=== PATIENT | female | born 1990 | race Caucasian/White ===

== ENCOUNTER 2016-10-30 15:36 | Emergency (ER) | payer OTHER, SELFPAY ==
[2016-10-30] MEDS ORDERED: Ibuprofen 800 MG TAB ONE (15:58)
--- NOTE | 2016-10-30 16:24 | RAD ---
RADIOGRAPH CHEST 2 VIEW: HISTORY: 26-year-old female with acute chest pain. FINDINGS: There are no air space densities, pulmonary edema, pneumothorax, or cardiomegaly. Normal mediastinu m and kash. No pleural effusion. IMPRESSION: Negative. POS: [facility]
--- NOTE | 2016-10-30 16:45 | PICIS ---
[facility] EMERGENCY RECORD TRIAGE (ThuOct 30, 2016 15:47 CJEF) TRIAGE NOTES: CP. (ThuOct 30, 2016 15:47 CJEF) PATIENT: NAME: Kya Beavers, AGE: 26, GENDER: female, : Thu1990, TIME OF GREET: ThuOct 30, 2016 15:36, PREFERRED LANGUAGE: Lao, ETHNICITY: Not or , FALL RISK: NO, ECODE BILLING MAP: [facility], SSN: [id number], Zip Code: [address], KG WEIGHT: 72.57, PHONE: , , , PERSON ID: [id number], PCP: NONE. (ThuOct 30, 2016 15:47 CJEF) COMPLAINT: HIGH RISK COMPLAINT: CHEST PAIN. (ThuOct 30, 2016 15:47 CJEF) ADMISSION: URGENCY: 3 Urgent, ADMISSION SOURCE: Home, TRANSPORT: Walk-in, BED: ED -01. (ThuOct 30, 2016 15:47 CJEF) ASSESSMENT: Assessment: PT REPORTS CHEST PAIN THAT STARTED X2-3 DAYS AGO ASSOCIATED WITH LEFT ARM AND MID BACK PAIN. PT DENIES ANY CONGESTION. PT REPORTS SOME COUGHING. (15:50 CJEF) PAIN: Patient complains of pain described as, Location CHEST, BACK, AND LEFT ARM. (15:50 CJEF) IMMUNIZATIONS: Flu vaccine not up to date, Tetanus not up to date, Pneumococcal vaccine not up to date. (15:50 CJEF) SIRS SCORING: Heart Rate 55-109 (0), Temp range 96.8-101.1 (0), respiratory rate 12-24 (0), Mental Status altered: no (0), Infection or Suspected Infection: No. (15:50 CJEF) TRIAGE SCREENING: Patient denies suicidal ideation, Patient denies presence of domestic violence. (15:50 CJEF) LMP: Last menstrual period: 10/21/2016. (15:50 CJEF) PROVIDERS: TRIAGE NURSE: Jasmina Doll RN. (Jessica Oct 30, 2016 15:47 CJEF) VITAL SIGNS: BP 129/94, Pulse 90, Resp 18, Temp 98.1, (Oral), Pain 9, O2 Sat 99, on Room Air, Time 10/30/2016 15:48. (15:48 CJEF) PREVIOUS VISIT ALLERGIES: No Known Drug Allergies. (ThuOct 30, 2016 15:47 CJEF) No Known Drug Allergies. (15:50 CJEF) KNOWN ALLERGIES No Known Drug Allergies CURRENT MEDICATIONS (15:48 CJEF) None VITAL SIGNS VITAL SIGNS: BP: 129/94, Pulse: 90, Resp: 18, Temp: 98.1 (Oral), Pain: 9, O2 sat: 99 on Room Air, Time: 10/30/2016 15:48. (15:48 CJEF) BP: 122/80, Pulse: 93, Resp: 18, O2 sat: 100 on Room Air, Time: 10/30/2016 16:18. (16:18 CJEF) NURSING ASSESSMENT: CARDIOVASCULAR (15:50 CJEF) CONSTITUTIONAL: Complex assessment performed, Patient arrives ambulatory, Gait steady, History obtained from patient, Patient &a-1R&a+25V*p+0X*x2188W*c202B*c15G*c2P*p-0X&a-25V&a+1R Name: Kya Beavers : 1990 F26 MedRec: [id number] AcctNum: [id number] Prepared: ThuOct 30, 2016 19:01 by Interface Page 1 of 6 pMD [facility] EMERGENCY RECORD appears comfortable, Patient cooperative, Patient alert, Oriented to person, place and time, Skin warm, Skin dry, Skin normal in color, Mucous membranes pink, Mucous membranes moist, Patient is well-groomed, PT REPORTS CHEST PAIN THAT STARTED X2-3 DAYS AGO ASSOCIATED WITH LEFT ARM AND MID BACK PAIN. PT DENIES ANY CONGESTION. PT REPORTS SOME COUGHING. PAIN: aching pain, midsternal, LEFT ARM AND BACK. CARDIOVASCULAR: Cardiovascular assessment findings include heart rate normal, Heart rhythm normal sinus, Heart sounds normal, S1, S2, No associated diaphoresis, no associated dyspnea. RESPIRATORY/CHEST: Breath sounds clear, Respiratory assessment findings include respiratory effort easy, Respirations regular, Conversing normally, Neck and chest exam findings include trachea midline, Chest expansion equal, Chest movement symmetrical, no signs of distress, Associated with cough, non-productive, no associated fever. NOTES: Patient tolerated procedure well. SAFETY: Side rails up, Cart/Stretcher in lowest position, Family at bedside, Call light within reach, Hospital ID band on. NURSING ASSESSMENT: FALL RISK (15:51 CJEF) FALL RISK: Total score 0, No risk for fall. [place] II FALL RISK: Able to rise in a single movement; no loss of balance with steps(0), Total score 0, Score less than 5. Patient not high risk for falls. NURSING ASSESSMENT: SKIN (15:51 CJ) SKIN: Skin assessment findings include skin warm, Skin dry, Skin normal in color. [place] SCALE: (4) Sensory perception has no impairment, (4) Skin is rarely moist, (4) Patient walks frequently, (4) No mobility limitations, (3) Adequate nutrition, (3) Patient has no apparent problem moving. NOTES: Patient tolerated procedure well. SAFETY: Side rails up, Cart/Stretcher in lowest position, Family at bedside, Call light within reach, Hospital ID band on. NURSING PROCEDURE: SHEET METAL FOREMAN (15:51 CJ) PATIENT IDENTIFIER: Patient actively involved in identification process, Patient's identity verified by patient stating name, Patient's identity verified by patient stating date. SHEET METAL FOREMAN: Cardiac monitoring indicated for complaint of chest pain, Patient placed on monitoring engineer, Heart rate: 99, showing normal sinus rhythm, Patient placed on non-invasive blood pressure monitor, with disposable blood pressure cuff applied, Patient placed on continuous pulse oximetry, Adult/pediatric oxisensor applied. FOLLOW-UP: After procedure, alarms set and on, After procedure, patient tolerating monitoring. &a-1R&a+25V*p+0X*z9896B*c202B*c15G*c2P*p-0X&a-25V&a+1R Name: Kya Beavers : 1990 F26 MedRec: [id number] AcctNum: [id number] Prepared: Jessica Oct 30, 2016 19:01 by Interface Page 2 of 6 pMD [facility] EMERGENCY RECORD NOTES: Patient tolerated procedure well. SAFETY: Side rails up, Cart/Stretcher in lowest position, Family at bedside, Call light within reach, Hospital ID band on. NURSING PROCEDURE: DISCHARGE NOTE (16:24 CJ) DISCHARGE: Patient discharged to home, ambulating without assistance, driving self, accompanied by friend, Summary of Care printed/ provided, Patient requested and was provided an electronic copy of Discharge Instructions, Transition record given to patient, Simple or moderate discharge teaching performed, Medication reconciliation form given, Above person(s) verbalized understanding of discharge instructions and follow-up care, Patient treated and evaluated by physician. BELONGINGS: Belongings remain with patient. NOTES: Patient tolerated procedure well. SAFETY: Side rails up, Cart/Stretcher in lowest position, Family at bedside, Call light within reach, Hospital ID band on. NURSING PROCEDURE: EKG CHART (15:47 CJEF) PATIENT IDENTIFIER: Patient actively involved in identification process, Patient's identity verified by patient stating name, Patient's identity verified by patient stating date. EKG: EKG indicated for complaint of chest pain, 12 lead EKG performed on the left chest, first EKG. FOLLOW-UP: After procedure, EKG for interpretation given to Dr. RENE. NOTES: Patient tolerated procedure well. SAFETY: Side rails up, Cart/Stretcher in lowest position, Family at bedside, Call light within reach, Hospital ID band on. 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 (15:57 CJEF) Patient in no apparent distress, Patient resting quietly, Notes: PT RESTING IN BED QUIETLY WITH NO DISTRESS NOTED. PT DENIES ANY NEEDS. (16:18 CJEF) NURSING PROCEDURE: TRANSPORT TO TESTS PATIENT IDENTIFIER: Patient actively involved in identification process, Patient's identity verified by patient stating name, Patient's identity verified by patient stating date. (16:09 CJEF) TRANSPORT TO TESTS: Transport indicated to facilitate diagnosis, Patient transported to x-ray, via wheelchair, Accompanied by x-ray telecasting technician. (16:09 CJEF) FOLLOW-UP: After procedure, patient returned to emergency department. (16:17 CJEF) NOTES: Patient tolerated procedure well. (16:09 CJEF) SAFETY: Side rails up, Cart/Stretcher in lowest position, Family at bedside, Call light within reach, Hospital ID band on. (16:09 &a-1R&a+25V*p+0X*c6684P*c202B*c15G*c2P*p-0X&a-25V&a+1R Name: Kya Beavers DOB: 1990 F26 MedRec: [id number] AcctNum: [id number] Prepared: Jessica Oct 30, 2016 19:01 by Interface Page 3 of 6 pMD [facility] EMERGENCY RECORD CJEF) ORDER DETAILS Order Name: XR Chest Pa & Lat STANDARD, Status: Active, Time: 15:55 10/30/2016, User: LHOD, - Ordered for: MD Rene Lefayne, - Entered by: MD Rene Lefayne - [facility] Oct 30, 2016 15:55, - Quantity: 1. MEDICATION ADMINISTRATION SUMMARY Drug Name: ibuprofen, Dose Ordered: 800 mg, Route: Oral, Status: Given, Time: 15:59 10/30/2016, Detailed record available in Medication Service section. MEDICATION SERVICE (15:59 LHOD) ibuprofen: Order: ibuprofen - Dose: 800 mg : Oral Ordered by: Audelia Rene MD Entered by: Audelia Rene MD [facility] Oct 30, 2016 15:54 Documented as given by: Jasmina Doll RN [facility] Oct 30, 2016 15:59 Patient, Medication, Dose, Route and Time verified prior to administration. Amount given: 800MG, Site: Medication administered P.O., Mouth check performed after administration of medication, Patient appears Awake and alert- acceptable, Correct patient, time, route, dose and medication confirmed prior to administration, Patient advised of actions and side-effects prior to administration, Allergies confirmed and medications reviewed prior to administration, Patient tolerated procedure well, Patient in position of comfort, Side rails up, Cart in lowest position, Family at bedside. HPI CHEST PAIN (15:59 LHOD) CHIEF COMPLAINT: Patient presents for evaluation of chest pain, ongoing. HISTORIAN: History provided by patient. TIME COURSE: PT C/O PAIN UPPER BACK BETWEEN SHOULDERS SINCE SHE GOT OFF WORK THURSDAY. DENIES SPECIFIC TRAUMA, BUT REPORTS IS UNDER A LOT OF STRESS. ONLY MEDICATION SHE TOOK FOR PAIN WAS 'S NTG W/O RELIEF. SHE REPORTS SHE HAS TO GO TO [place] TOMORROW TO COURT. HER FAMILY, FORTINO BEAVERS, WAS ARRESTED WITH DRUG RING THIS PAST SEPTEMBER. ROS (16:36 LHOD) CONSTITUTIONAL: Historian denies fever. CARDIOVASCULAR: Historian reports chest pain, denies edema. RESPIRATORY: Historian denies cough, denies shortness of breath. GI: Historian denies abdominal pain. GENITOURINARY FEMALE: Historian denies . &a-1R&a+25V*p+0X*f9291R*c202B*c15G*c2P*p-0X&a-25V&a+1R Name: Kya Beavers : 1990 F26 MedRec: [id number] AcctNum: [id number] Prepared: Jessica Oct 30, 2016 19:01 by Interface Page 4 of 6 pMD [facility] EMERGENCY RECORD MUSCULOSKELETAL: Historian reports back pain, denies neck pain. UPPER BACK TENDERNESS. SKIN: Historian denies rash. NEUROLOGIC: Historian denies focal weakness, denies headache. HEMO/LYMPHATIC: Historian denies easy bruising. ALLERGIC/IMMUNOLOGIC: Historian denies hives. NOTES: All systems reviewed, negative except as described above. PAST MEDICAL HISTORY MEDICAL HISTORY: Flu vaccine not up to date, Tetanus not up to date, Pneumococcal vaccine not up to date, No past medical history, No past medical history, Notes: was told 3-4 months ago she had an overian cyst. (15:50 CJEF) FEMALE SURGICAL HISTORY: VERIFIED --, tubes clamped in 2011. BIOPSY TO OVARIES. (15:50 CJEF) PSYCHIATRIC HISTORY: Psychiatric history includes, depression. (15:50 CJEF) SOCIAL HISTORY: Social History includes VERIFIED 5-9-16, Patient drinks socially, Patient denies drug use, Patient currently uses tobacco, smokes cigarettes, daily, Patient smokes 2 pack per day, Patient drinks socially, Patient denies drug use, Patient currently uses tobacco, smokes cigarettes, daily, Patient has smoked for 15 years, Patient smokes 2 pack per day,. (15:50 CJEF) FAMILY HISTORY: Paternal history of cardiac disease:, coronary artery disease. (15:50 CJEF) NOTES: Nursing records reviewed. (16:42 LHOD) PHYSICAL EXAM (16:40 LHOD) CONSTITUTIONAL: Vital Signs Reviewed, Patient afebrile, Pulse normal, Blood pressure normal bilaterally, Respiratory rate normal, Patient appears, in moderate pain distress, Patient alert and oriented to person, place and time, MOVING / SITTING UP STIFFLY WITH UPPER BACK PAIN. HEAD: Head exam included findings of head atraumatic. NECK: Neck exam included findings of normal range of motion, Trachea midline. RESPIRATORY CHEST: Respiratory exam included findings of no respiratory distress, Breath sounds clear, Tenderness, moderate, TENDER INTERSCAPULAR MUSCLES. CARDIOVASCULAR: Heart rate regular rate and rhythm, Heart sounds normal. ABDOMEN FEMALE: Abdominal exam included findings of abdomen nontender. BACK: Back exam normal. UPPER EXTREMITY: PAIN WITH RAISING ARMS, LEFT GREATER THAN RIGHT. LOWER EXTREMITY: Lower extremity exam normal. NEURO: Neuro exam findings include patient oriented to person, place and time, Speech normal. SKIN: no rash. &a-1R&a+25V*p+0X*n7728M*c202B*c15G*c2P*p-0X&a-25V&a+1R Name: Kya Beavers : 1990 F26 MedRec: [id number] AcctNum: [id number] Prepared: [facility] Oct 30, 2016 19:01 by Interface Page 5 of 6 pMD [facility] EMERGENCY RECORD EVENTS TRANSFER: Triage to Emergency Main ED -01. ([facility] Oct 30, 2016 15:47 CJEF) Removed from Emergency Main ED -01. (16:24 CJEF) RADIOLOGYINTERPRETATION (16:43 LHOD) CHEST: Chest films negative. EKG INTERPRETATION (16:42 LHOD) 12 LEAD EKG INTERPRETATION: 12 lead EKG interpreted by Emergency Department Physician at time of study, 12 lead EKG shows normal sinus rhythm, Rate (beats per minute): 95, with no ectopics, T waves normal, Maynard normal. PROBLEM LIST No recorded problems DIAGNOSIS (16:19 LHOD) FINAL: PRIMARY: MUSCULOSKELETAL INTRASCAPULAR MUSCLE STRAIN. DISPOSITION PATIENT: Disposition Type: Discharge, Disposition: *Discharge Home, Condition: Good. (16:19 LHOD) Patient left the department. (16:24 CJEF) INSTRUCTION (16:20 LHOD) DISCHARGE: CHEST STRAIN. FOLLOWUP: Follow up with Primary Care Physician in 5 days. SPECIAL: Tylenol or Advil for Pain MOIST HEAT TO DECREASE MUSCLE TENSION. Follow-up with your PCP. PRESCRIPTION No recorded prescriptions IMAGING *EKG: Image captured from scanner. (16:19 JPAR) *DISCHARGE INSTRUCTIONS RECEIPT: Image captured from scanner. (16:25 CJEF) *SUPPLY CHARGE SHEET: Image captured from scanner. (16:25 [facility]) ADMIN (18:49 LHOD) DIGITAL SIGNATURE: MD Rene Lefayne. Martinez: MEJIA=NAGA Doll, Jasmina ASTORGA=HAZEL Simms Julia LHOD=MD Rene Lefayne &a-1R&a+25V*p+0X*m7067A*c202B*c15G*c2P*p-0X&a-25V&a+1R Name: Kya Beavers : 1990 F26 MedRec: [id number] AcctNum: [id number] Prepared: Jessica Oct 30, 2016 19:01 by Interface Page 6 of 6 pMD MTDD
--- NOTE | 2016-10-30 16:48 | ERRECORD ---
[facility] EMERGENCY RECORD HPI CHEST PAIN (15:59 LHOD) CHIEF COMPLAINT: Patient presents for evaluation of chest pain, ongoing. HISTORIAN: History provided by patient. TIME COURSE: PT C/O PAIN UPPER BACK BETWEEN SHOULDERS SINCE SHE GOT OFF WORK THURSDAY. DENIES SPECIFIC TRAUMA, BUT REPORTS IS UNDER A LOT OF STRESS. ONLY MEDICATION SHE TOOK FOR PAIN WAS 'S NTG W/O RELIEF. SHE REPORTS SHE HAS TO GO TO [place] TOMORROW TO COURT. HER FAMILY, FORTINO DE LA VEGA, WAS ARRESTED WITH DRUG RING THIS PAST SEPTEMBER. ROS (16:36 LHOD) CONSTITUTIONAL: Historian denies fever. CARDIOVASCULAR: Historian reports chest pain, denies edema. RESPIRATORY: Historian denies cough, denies shortness of breath. GI: Historian denies abdominal pain. GENITOURINARY FEMALE: Historian denies . MUSCULOSKELETAL: Historian reports back pain, denies neck pain. UPPER BACK TENDERNESS. SKIN: Historian denies rash. NEUROLOGIC: Historian denies focal weakness, denies headache. HEMO/LYMPHATIC: Historian denies easy bruising. ALLERGIC/IMMUNOLOGIC: Historian denies hives. NOTES: All systems reviewed, negative except as described above. PAST MEDICAL HISTORY MEDICAL HISTORY: Flu vaccine not up to date, Tetanus not up to date, Pneumococcal vaccine not up to date, No past medical history, No past medical history, Notes: was told 3-4 months ago she had an overian cyst. (15:50 CJEF) FEMALE SURGICAL HISTORY: VERIFIED 02-25-16, tubes clamped in 2011. BIOPSY TO OVARIES. (15:50 CJEF) PSYCHIATRIC HISTORY: Psychiatric history includes, depression. (15:50 CJEF) SOCIAL HISTORY: Social History includes VERIFIED 02-24-16, Patient drinks socially, Patient denies drug use, Patient currently uses tobacco, smokes cigarettes, daily, Patient smokes 2 pack per day, Patient drinks socially, Patient denies drug use, Patient currently uses tobacco, smokes cigarettes, daily, Patient has smoked for 15 years, Patient smokes 2 pack per day,. (15:50 CJEF) FAMILY HISTORY: Paternal history of cardiac disease:, coronary artery disease. (15:50 CJEF) NOTES: Nursing records reviewed. (16:42 LHOD) KNOWN ALLERGIES No Known Drug Allergies CURRENT MEDICATIONS (15:48 CJEF) None &a-1R&a+25V*p+0X*i0253N*c202B*c15G*c2P*p-0X&a-25V&a+1R Name: Kya De La Vega : 1990 F26 MedRec: [id number] AcctNum: [id number] Prepared: Jessica Oct 30, 2016 18:55 by Interface Page 1 of 3 pMD [facility] EMERGENCY RECORD VITAL SIGNS VITAL SIGNS: BP: 129/94, Pulse: 90, Resp: 18, Temp: 98.1 (Oral), Pain: 9, O2 sat: 99 on Room Air, Time: 10/30/2016 15:48. (15:48 CJEF) BP: 122/80, Pulse: 93, Resp: 18, O2 sat: 100 on Room Air, Time: 10/30/2016 16:18. (16:18 CJEF) PHYSICAL EXAM (16:40 LHOD) CONSTITUTIONAL: Vital Signs Reviewed, Patient afebrile, Pulse normal, Blood pressure normal bilaterally, Respiratory rate normal, Patient appears, in moderate pain distress, Patient alert and oriented to person, place and time, MOVING / SITTING UP STIFFLY WITH UPPER BACK PAIN. HEAD: Head exam included findings of head atraumatic. NECK: Neck exam included findings of normal range of motion, Trachea midline. RESPIRATORY CHEST: Respiratory exam included findings of no respiratory distress, Breath sounds clear, Tenderness, moderate, TENDER INTERSCAPULAR MUSCLES. CARDIOVASCULAR: Heart rate regular rate and rhythm, Heart sounds normal. ABDOMEN FEMALE: Abdominal exam included findings of abdomen nontender. BACK: Back exam normal. UPPER EXTREMITY: PAIN WITH RAISING ARMS, LEFT GREATER THAN RIGHT. LOWER EXTREMITY: Lower extremity exam normal. NEURO: Neuro exam findings include patient oriented to person, place and time, Speech normal. SKIN: no rash. EKG INTERPRETATION (16:42 LHOD) 12 LEAD EKG INTERPRETATION: 12 lead EKG interpreted by Emergency Department Physician at time of study, 12 lead EKG shows normal sinus rhythm, Rate (beats per minute): 95, with no ectopics, T waves normal, Adrian normal. RADIOLOGYINTERPRETATION (16:43 LHOD) CHEST: Chest films negative. MEDICATION ADMINISTRATION SUMMARY Drug Name: ibuprofen, Dose Ordered: 800 mg, Route: Oral, Status: Given, Time: 15:59 10/30/2016, Detailed record available in Medication Service section. PROBLEM LIST No recorded problems DIAGNOSIS (16:19 LHOD) &a-1R&a+25V*p+0X*m1852B*c202B*c15G*c2P*p-0X&a-25V&a+1R Name: Kya De La Vega : 1990 F26 MedRec: [id number] AcctNum: [id number] Prepared: [facility] Oct 30, 2016 18:55 by Interface Page 2 of 3 pMD [facility] EMERGENCY RECORD FINAL: PRIMARY: MUSCULOSKELETAL INTRASCAPULAR MUSCLE STRAIN. PRESCRIPTION No recorded prescriptions DISPOSITION PATIENT: Disposition Type: Discharge, Disposition: *Discharge Home, Condition: Good. (16:19 OD) Patient left the department. (16:24 [facility]) Martinez: CJEF=NAGA Doll, Jasmina LHOD=MD Anju, Audelia &a-1R&a+25V*p+0X*a5379E*c202B*c15G*c2P*p-0X&a-25V&a+1R Name: Kya De La Vega : 1990 F26 MedRec: [id number] AcctNum: [id number] Prepared: [facility] Oct 30, 2016 18:55 by Interface Page 3 of 3 pMD MTDD
== END 2016-10-30 16:25 | disposition home or self-care (01) ==
LOC: MADERS 15:36
DX: S46.912A Strain of unspecified muscle, fascia and tendon at shoulder and upper arm level, left arm, initial encounter (principal); F32.9 Major depressive disorder, single episode, unspecified; F17.210 Nicotine dependence, cigarettes, uncomplicated; X58.XXXA Exposure to other specified factors, initial encounter
CPT/HCPCS: 71020

== ENCOUNTER 2016-11-28 12:55 | Emergency (ER) | payer SELFPAY ==
[2016-11-28] MEDS ORDERED: Benzonatate 100 MG CAP ONE (13:49)
[2016-11-28] MEDS ORDERED: AMOXicillin 250 MG CAP ONE (13:49)
== END 2016-11-28 13:58 | disposition home or self-care (01) ==
LOC: MADERS 12:55
DX: J02.9 Acute pharyngitis, unspecified (principal); J20.9 Acute bronchitis, unspecified; F32.9 Major depressive disorder, single episode, unspecified; F17.210 Nicotine dependence, cigarettes, uncomplicated
CPT/HCPCS: 99282

== ENCOUNTER 2017-01-09 18:01 | Emergency (ER) | payer MEDICAID, SELFPAY ==
--- NOTE | 2017-01-09 19:59 | RAD ---
RIGHT WRIST THREE VIEWS 01/09/17 HISTORY: Right wrist pain. FINDINGS: The scaphoid waist is intact. No acute fracture, dislocation, or aggressive osseous erosions are juan miguel arent. IMPRESSION: No acute osseous abnormalities are demonstrated. POS: [facility]
== END 2017-01-09 19:08 | disposition home or self-care (01) ==
LOC: MADERS 18:01
DX: S63.501A Unspecified sprain of right wrist, initial encounter (principal); F32.9 Major depressive disorder, single episode, unspecified; F17.210 Nicotine dependence, cigarettes, uncomplicated; X58.XXXA Exposure to other specified factors, initial encounter
CPT/HCPCS: 29125

== ENCOUNTER 2017-02-24 14:04 | Emergency (ER) | payer MEDICAID ==
[~2017-02-24 14:04] MED LIST: Sodium Chloride 0.9% 1,000 ML BAG ONE; Sodium Chloride 0.9% 100 ML BAG ONE
[2017-02-24] MEDS ORDERED: Dexamethasone 10 MG/ML VIAL ONE (15:44)
[2017-02-24] MEDS ORDERED: Benzonatate 100 MG CAP ONE (15:44)
[2017-02-24] MEDS ORDERED: methylPREDNISolone Sod Succ/PF 125 MG/2 ML VIAL ONE (15:44)
[2017-02-24] MEDS ORDERED: Ketorolac Tromethamine 30 MG/ML VIAL ONE (15:44)
[2017-02-24] MEDS ORDERED: Ondansetron HCl/PF 4 MG/2 ML Vial ONE (15:44)
[2017-02-24] MEDS ORDERED: cefTRIAXone\\ROCEPHIN 1 GM VIAL ONE (16:08)
== END 2017-02-24 17:12 | disposition home or self-care (01) ==
LOC: MADERS 14:04
DX: J20.9 Acute bronchitis, unspecified (principal); F32.9 Major depressive disorder, single episode, unspecified; F17.210 Nicotine dependence, cigarettes, uncomplicated
CPT/HCPCS: 96365; 96375; J0696; J1100; J1885; J2270; J2405; J2930; J7050

== ENCOUNTER 2017-06-26 11:05 | Emergency (ER) | payer MEDICAID, SELFPAY ==
--- NOTE | 2017-06-26 13:15 | RAD ---
RIGHT INDEX DIGIT RADIOGRAPHS 3 VIEWS: Date: 06/26/17 PROVIDED CLINICAL HISTORY: Right index digit pain status post injury. FINDINGS: There is no evidence for fracture or other acute osseous abnormality. If there is persistent clinica l concern, conservative management and follow-up imaging are advised. IMPRESSION: As above. POS: [facility]
== END 2017-06-26 12:22 | disposition home or self-care (01) ==
LOC: MADERS 11:05
DX: S60.021A Contusion of right index finger without damage to nail, initial encounter (principal); F32.9 Major depressive disorder, single episode, unspecified; F17.210 Nicotine dependence, cigarettes, uncomplicated; W22.09XA Striking against other stationary object, initial encounter

== ENCOUNTER 2017-07-01 12:16 | Emergency (ER) | payer SELFPAY ==
--- NOTE | 2017-07-01 13:18 | RAD ---
TWO VIEW CHEST: Comparison: 10-30-16 History: Chest pain. FINDINGS: Lungs are hyperinflated. No evidence of consolidation, effusion, or pneumothorax. Cardiac silhouette is normal in size. No acute osseous pathology. IMPRESSION: No focal consolidation. POS: [facility]
== END 2017-07-01 12:30 | disposition home or self-care (01) ==
LOC: MADERS 12:16
DX: J40 Bronchitis, not specified as acute or chronic (principal); R07.89 Other chest pain; F32.9 Major depressive disorder, single episode, unspecified; F17.210 Nicotine dependence, cigarettes, uncomplicated; Z79.1 Long term (current) use of non-steroidal anti-inflammatories (NSAID)
CPT/HCPCS: 71020; 93005

== ENCOUNTER 2017-07-28 20:37 | Emergency (ER) | payer SELFPAY ==
[2017-07-28] MEDS ORDERED: Ibuprofen 800 MG TAB ONE (21:14)
[2017-07-28] MEDS ORDERED: HYDROcodone/Acetaminophen 5/325 mg Tablet ONE (21:14)
[2017-07-28] MEDS ORDERED: Dexamethasone 4 MG TAB ONE (21:14)
[2017-07-28] MEDS ORDERED: Ventolin HFA Inhaler 60 PUFF INHALER ONE (21:14)
[2017-07-28 21:40] LABS: Pregnancy Test - Urine (BHCG) Negative (Negative); Pregu Control Background? CLEAR/WHITE (CLR/WHITE); Pregu Control Bar Appear? YES (CONTROL BAR)
== END 2017-07-28 21:55 | disposition home or self-care (01) ==
LOC: MADERS 20:37
DX: J20.9 Acute bronchitis, unspecified (principal); F32.9 Major depressive disorder, single episode, unspecified; F17.210 Nicotine dependence, cigarettes, uncomplicated
CPT/HCPCS: 81025; 99283; J8540

== ENCOUNTER 2017-08-27 18:39 | Emergency (ER) | payer SELFPAY ==
[2017-08-27] MEDS ORDERED: HYDROcodone/Acetaminophen 10/325 mg Tablet ONE (20:12)
[2017-08-27] MEDS ORDERED: Benzonatate 100 MG CAP ONE (20:13)
[2017-08-27] MEDS ORDERED: Oxymetazoline HCl 0.05% ( 15 ML ) ONE (20:13)
[2017-08-27] MEDS ORDERED: predniSONE 20 MG TAB ONE (20:13)
[2017-08-27] MEDS ORDERED: Bicillin LA 1.2 MILLION UNITS/2 ML SYRINGE ONE (20:13)
[2017-08-27] MEDS ORDERED: Naproxen 500 MG TAB ONE (20:13)
[2017-08-27] MEDS ORDERED: Ondansetron ODT 4 MG TAB ONE (20:13)
== END 2017-08-27 20:48 | disposition home or self-care (01) ==
LOC: MADERS 18:39
DX: J20.9 Acute bronchitis, unspecified (principal); J03.90 Acute tonsillitis, unspecified; F32.9 Major depressive disorder, single episode, unspecified; F17.210 Nicotine dependence, cigarettes, uncomplicated
CPT/HCPCS: 96372; J0561; J7506; Q0162

== ENCOUNTER 2017-10-28 11:38 | Emergency (ER) | payer MEDICAID, SELFPAY ==
[2017-10-28] MEDS ORDERED: Ibuprofen 800 MG TAB ONE (12:22)
[2017-10-28] MEDS ORDERED: Benzonatate 100 MG CAP ONE (12:22)
== END 2017-10-28 12:27 | disposition home or self-care (01) ==
LOC: MADERS 11:38
DX: J06.9 Acute upper respiratory infection, unspecified (principal); F32.9 Major depressive disorder, single episode, unspecified; Z87.891 Personal history of nicotine dependence
CPT/HCPCS: 99283

== ENCOUNTER 2017-10-31 11:36 | Emergency (ER) | payer SELFPAY ==
[2017-10-31] MEDS ORDERED: Dexamethasone 10 MG/ML VIAL ONE (12:33)
[2017-10-31] MEDS ORDERED: Ketorolac Tromethamine 30 MG/ML VIAL ONE (12:33)
[2017-10-31 12:37] LABS: Pregnancy Test - Urine (BHCG) Negative (Negative); Pregu Control Background? CLEAR/WHITE (CLR/WHITE); Pregu Control Bar Appear? YES (CONTROL BAR); Specific Gravity 1.018 (1.002-1.036)
[2017-10-31] MEDS ORDERED: HYDROcodone/Acetaminophen 5/325 mg Tablet ONE (12:50)
== END 2017-10-31 12:56 | disposition home or self-care (01) ==
LOC: MADERS 11:36
DX: J02.9 Acute pharyngitis, unspecified (principal); F17.210 Nicotine dependence, cigarettes, uncomplicated; Z79.899 Other long term (current) drug therapy
CPT/HCPCS: 81025; 87081; 87430; 96372; J1100; J1885

== ENCOUNTER 2017-11-13 14:51 | Emergency (ER) | payer SELFPAY | END 2017-11-13 16:59 | disposition home or self-care (01) | LOC: MADERS 14:51 | DX: R07.89 Other chest pain (principal); F17.210 Nicotine dependence, cigarettes, uncomplicated; F32.9 Major depressive disorder, single episode, unspecified | CPT/HCPCS: 99284 ==

== ENCOUNTER 2018-01-05 10:44 | Emergency (ER) | payer SELFPAY ==
[~2018-01-05 10:44] MED LIST changes: +Lidocaine 1% 20 ML MDV ONE; -Sodium Chloride 0.9% 1,000 ML BAG ONE; -Sodium Chloride 0.9% 100 ML BAG ONE
[2018-01-05] MEDS ORDERED: cefTRIAXone\\ROCEPHIN 1 GM VIAL ONE (11:31)
== END 2018-01-05 11:35 | disposition home or self-care (01) ==
LOC: MADERS 10:44
DX: J20.9 Acute bronchitis, unspecified (principal); J01.00 Acute maxillary sinusitis, unspecified; G89.29 Other chronic pain; F17.210 Nicotine dependence, cigarettes, uncomplicated
CPT/HCPCS: 96372; J0696; J1040; J2001

== ENCOUNTER 2018-01-22 10:37 | Emergency (ER) | payer SELFPAY ==
[2018-01-22] MEDS ORDERED: Mag-Al Plus 1200 MG/1200 MG/120 MG/30 ML UDCUP ONE (10:58)
[2018-01-22] MEDS ORDERED: Lorazepam 2 MG/ML VIAL ONE (10:58)
[2018-01-22] MEDS ORDERED: Lidocaine Viscous Sol 2% 15 ml UD Cup ONE (10:58)
[2018-01-22] MEDS ORDERED: Losartan 25 MG TAB ONE (10:58)
[2018-01-22 11:19] LABS: Bilirubin Negative (Negative); Blood, Urine Negative (Negative); Clarity Clear (Clear); Glucose, Urine (Dipstick) Negative (Negative); Leukocyte Small (Negative); Nitrite Negative (Negative); Pregnancy Test - Urine (BHCG) Negative (Negative); Pregu Control Background? CLEAR/WHITE (CLR/WHITE); Pregu Control Bar Appear? YES (CONTROL BAR); Protein, Urine (Dipstick) Negative (Neg-Trace)
[2018-01-22 11:24] LABS: Bacteria/HPF Rare-Few HPF (None Seen); RBC/HPF 0-3 HPF (0-3); WBC/HPF 0-3 HPF (0-3)
[2018-01-22 11:27] LABS: Cocaine Metabolite Screen Not Detected (NotDetected); Methamphetamine Not Detected (NotDetected); Phencyclidine (PCP) Not Detected (NotDetected); THC/Cannabinoid Screen Not Detected (NotDetected)
[2018-01-22 11:28] LABS: Amphetamine Not Detected (NotDetected); Barbiturates Screen Not Detected (NotDetected); Benzodiazepine Screen Not Detected (NotDetected); Medtox Control Line Valid? VALID (VALID); Methadone Not Detected (NotDetected); Opiate Screen Not Detected (NotDetected); Oxycodone Screen Not Detected (NotDetected); Tricyclic Screen Not Detected (NotDetected)
[2018-01-22 11:33] LABS: ALT (SGPT) 15 U/L (8-55); AST (SGOT) 14 U/L (5-34); Albumin 3.8 g/dL (3.5-5.0); Alkaline Phosphatase 42 U/L (40-150); Anion Gap 14 mmol/L (10-20); BUN (Urea Nitrogen) 11 mg/dL (7.0-18.7); Bilirubin, Total 0.4 mg/dL (0.2-1.2); Calc. Creatinine Clearance 0 mL/min (70-130); Calcium 8.9 mg/dL (7.8-10.44); Carbon Dioxide 24 mmol/L (22-29); Chloride 108 mmol/L (98-107); Estimated GFR-MDRD Greater than 90; Globulin 2.9 g/dL (2.4-3.5); Glucose 101 mg/dL (70-105); Potassium 3.9 mmol/L (3.5-5.1); Protein, Total 6.7 g/dL (6.0-8.3); Sodium 142 mmol/L (136-145)
[2018-01-22 11:37] LABS: CKMB 1.9 ng/mL (0-6.6); Troponin I Less than 0.010 ng/mL (< 0.028)
== END 2018-01-22 11:55 | disposition home or self-care (01) ==
LOC: MADERS 10:37
DX: K21.9 Gastro-esophageal reflux disease without esophagitis (principal); F41.9 Anxiety disorder, unspecified; F17.210 Nicotine dependence, cigarettes, uncomplicated
CPT/HCPCS: 36415; 80053; 80306; 81003; 81015; 81025; 82553; 84484; 93005; 96372; J2060

== ENCOUNTER 2018-03-24 10:38 | Emergency (ER) | payer SELFPAY ==
--- NOTE | 2018-03-24 12:50 | RAD ---
LEFT ANKLE THREE VIEWS: HISTORY: Ankle injury. FINDINGS: There are no signs of fracture or dislocation. IMPRESSION: Negative left ankle. POS: [facility]
== END 2018-03-24 12:18 | disposition home or self-care (01) ==
LOC: MADERS 10:38
DX: S93.422A Sprain of deltoid ligament of left ankle, initial encounter (principal); F17.210 Nicotine dependence, cigarettes, uncomplicated; X50.1XXA Overexertion from prolonged static or awkward postures, initial encounter

== ENCOUNTER 2018-04-14 09:38 | Emergency (ER) | payer SELFPAY ==
--- NOTE | 2018-04-14 10:48 | RAD ---
LEFT ANKLE THREE VIEWS: Date: 04-14-18 History: Blunt trauma to midfoot. Comparison: 03-24-18 FINDINGS: Ankle mortise is congruent. No fracture or dislocation seen. There is a tiny osseous density adjacent to the cuboid bone, stable from the prior study, and probably related to an accessory center of ossi fication. There has been no interval change from the prior exam. IMPRESSION: Stable left ankle without evidence of acute osseous abnormality. POS: [facility]
--- NOTE | 2018-04-14 11:21 | RAD ---
THREE VIEWS LEFT FOOT: Date: 04-14-18 Comparison: None. History: Blunt trauma to the midfoot. FINDINGS: No displaced fracture or dislocation. No radiopaque foreign body or subcutaneous gas. IMPRESSION: No acute findings. POS: [facility]
== END 2018-04-14 10:56 | disposition home or self-care (01) ==
LOC: MADERS 09:38
DX: S90.32XA Contusion of left foot, initial encounter (principal); F32.9 Major depressive disorder, single episode, unspecified; F17.210 Nicotine dependence, cigarettes, uncomplicated; W22.8XXA Striking against or struck by other objects, initial encounter

== ENCOUNTER 2019-01-28 20:17 | Emergency (ER) | payer MEDICAID, SELFPAY ==
[2019-01-28 20:48] LABS: Bilirubin Negative (Negative); Blood, Urine Negative (Negative); Clarity Hazy (Clear); Glucose, Urine (Dipstick) Negative (Negative); Leukocyte Trace (Negative); Nitrite Negative (Negative); Protein, Urine (Dipstick) Negative (Neg-Trace); Urobilinogen 0.2 mg/dL (0.2-1.0)
[2019-01-28 20:49] LABS: Pregnancy Test - Urine (BHCG) Negative (Negative); Pregu Control Background? CLEAR/WHITE (CLR/WHITE); Pregu Control Bar Appear? YES (CONTROL BAR)
[2019-01-28 20:53] LABS: Bacteria/HPF None Seen HPF (None Seen); RBC/HPF 0-3 HPF (0-3); Squamous Epithelial 0-3 HPF (0-3)
[2019-01-28] MEDS ORDERED: traMADol HCl 50 MG TAB ONE (21:09)
[2019-01-28] MEDS ORDERED: Ibuprofen 800 MG TAB ONE (21:10)
== END 2019-01-28 21:15 | disposition home or self-care (01) ==
LOC: MADERS 20:17
DX: M54.5 Low back pain (principal); F17.210 Nicotine dependence, cigarettes, uncomplicated
CPT/HCPCS: 81003; 81015; 81025; 99283

== ENCOUNTER 2020-08-19 12:32 | Emergency (ER) | payer MEDICAID, SELFPAY ==
[2020-08-19 13:32] LABS: #Basophils 0.1 thou/uL (0.0-0.2); #Eosinphils 0.1 thou/uL (0.0-0.7); #Lymphocytes 1.9 thou/uL (1.20-3.40); #Monocytes 0.8 thou/uL (0.11-0.59); #Neutrophils 7.5 thou/uL (1.40-6.50); %Basophils 1.1 % (0.0-1.0); %Eosinophils 1.1 % (0.0-10.0); %Lymphocytes 18.3 % (21.0-51.0); %Monocytes 7.7 % (0.0-10.0); %Neutrophils 71.8 % (42.0-75.0); Hemoglobin 13.6 g/dL (12.0-16.0); Mean Corpuscular HGB CONC 32.5 g/dL (32.0-36.0); Mean Corpuscular Hemoglobin 27.7 pg (27.0-31.0); Mean Corpuscular Volume 85.2 fL (78.0-98.0); Mean Platelet Volume 7.2 fL (7.4-10.4); Platelet Count 272 thou/uL (130-400); RBC Distribution Width 11.3 % (11.5-14.5); Red Blood Cell (RBC) Count 4.92 mill/uL (4.20-5.40); White Blood Cell (WBC) Count 10.5 thou/uL (4.8-10.8)
[2020-08-19 13:43] LABS: Bilirubin Negative (Negative); Blood, Urine Negative (Negative); Glucose, Urine (Dipstick) Negative (Negative); Ketone, Urine Negative (Negative); Leukocyte Small (Negative); Nitrite Positive (Negative); Protein, Urine (Dipstick) Negative (Neg-Trace); pH, Urine 5.5 (5.0-9.0)
[2020-08-19 13:46] LABS: Clarity Hazy (Clear); Specific Gravity, Urine 1.025 (1.002-1.036)
[2020-08-19 13:47] LABS: Bacteria/HPF 3+ HPF (None Seen); RBC/HPF 0-3 HPF (0-3); WBC/HPF 21-50 HPF (0-3)
[2020-08-19 13:48] LABS: Pregnancy Test - Urine (BHCG) Negative (Negative); Pregu Control Background? CLEAR/WHITE (CLR/WHITE); Pregu Control Bar Appear? YES (CONTROL BAR); Specific Gravity 1.025 (1.002-1.036)
[2020-08-19 13:50] LABS: ALT (SGPT) 11 U/L (8-55); AST (SGOT) 12 U/L (5-34); Albumin 3.8 g/dL (3.5-5.0); Alkaline Phosphatase 48 U/L (40-110); Anion Gap 16 mmol/L (10-20); BUN (Urea Nitrogen) 9 mg/dL (7.0-18.7); Bilirubin, Total 0.3 mg/dL (0.2-1.2); CK (CPK) 68 U/L (29-168); CRP (Inflammatory) 2.49 mg/dL (= or < 0.5); Calc. Creatinine Clearance 0 mL/min (70-130); Calcium 8.9 mg/dL (7.8-10.44); Carbon Dioxide 26 mmol/L (22-29); Chloride 102 mmol/L (98-107); Estimated GFR-MDRD Greater than 90; Globulin 3.2 g/dL (2.4-3.5); Glucose 86 mg/dL (70-105); Potassium 3.8 mmol/L (3.5-5.1); Sodium 140 mmol/L (136-145)
[2020-08-19 13:53] LABS: Amphetamine Detected (NotDetected); Barbiturates Screen Not Detected (NotDetected); Benzodiazepine Screen Not Detected (NotDetected); Cocaine Metabolite Screen Not Detected (NotDetected); Medtox Control Line Valid? VALID (VALID); Methadone Not Detected (NotDetected); Methamphetamine Not Detected (NotDetected); Opiate Screen Not Detected (NotDetected); Oxycodone Screen Not Detected (NotDetected); Phencyclidine (PCP) Not Detected (NotDetected); THC/Cannabinoid Screen Not Detected (NotDetected); Tricyclic Screen Not Detected (NotDetected)
[2020-08-19] MEDS ORDERED: cefTRIAXone\\ROCEPHIN 1 GM VIAL ONE (14:41)
== END 2020-08-19 15:05 | disposition home or self-care (01) ==
LOC: MADERS 12:32
DX: N39.0 Urinary tract infection, site not specified (principal); F15.10 Other stimulant abuse, uncomplicated; Z71.6 Tobacco abuse counseling; F32.9 Major depressive disorder, single episode, unspecified; F17.210 Nicotine dependence, cigarettes, uncomplicated
CPT/HCPCS: 80053; 80306; 81003; 81015; 81025; 82550; 85025; 86140; 93005; 96374; 99406; J0696

== ENCOUNTER 2024-10-14 18:18 | Emergency (ER) | payer SELFPAY ==
[2024-10-14] MEDS ORDERED: Ketorolac Tromethamine 30 MG (1 mL) VIAL ONE (18:45)
[2024-10-14] MEDS ORDERED: Methocarbamol 500 MG TAB ONE (18:46)
== END 2024-10-14 19:47 | disposition home or self-care (01) ==
LOC: MADERS 18:18
DX: S39.012A Strain of muscle, fascia and tendon of lower back, initial encounter (principal); F17.210 Nicotine dependence, cigarettes, uncomplicated; W19.XXXA Unspecified fall, initial encounter
CPT/HCPCS: 72131; 96372; J1885

== ENCOUNTER 2025-07-02 11:13 | Emergency (ER) | payer SELFPAY ==
[2025-07-02 11:47] LABS: #Basophils 0.1 thou/uL (0.0-0.2); #Eosinophils 0.1 thou/uL (0.0-0.7); #Lymphocytes 2.1 thou/uL (1.20-3.40); #Monocytes 0.5 thou/uL (0.11-0.59); #Neutrophils 3.4 thou/uL (1.40-6.50); %Basophils 0.9 % (0.0-1.0); %Eosinophils 1.0 % (0.0-10.0); %Lymphocytes 33.5 % (21.0-51.0); %Monocytes 8.3 % (0.0-10.0); %Neutrophils 56.3 % (42.0-75.0); Hematocrit 41.0 % (36.0-47.0); Hemoglobin 13.6 g/dL (12.0-16.0); Mean Corpuscular Hemoglobin 27.3 pg (27.0-31.0); Mean Corpuscular Volume 82.6 fl (78.0-98.0); Platelet Count 315 10x3/uL (130-400); Red Blood Cell (RBC) Count 4.97 mill/uL (4.20-5.40); White Blood Cell (WBC) Count 6.1 10x3/uL (4.8-10.8)
[2025-07-02 11:59] LABS: BHCG - Serum Negative (NEGATIVE); Pregs Control Background? CLEAR/WHITE (CLR/WHITE); Pregs Control Bar Appear? YES (CONTROL BAR)
[2025-07-02 12:05] LABS: ALT (SGPT) 37 U/L (Less than 34); AST (SGOT) 26 U/L (11-34); Albumin 3.8 g/dL (3.1-4.5); Alkaline Phosphatase 45 U/L (40-110); Anion Gap 14 mmol/L (10-20); BUN (Urea Nitrogen) 7 mg/dL (7.0-18.7); Bilirubin, Total 0.2 mg/dL (0.3-1.2); Calc. Creatinine Clearance 0 mL/min (70-130); Calcium 8.4 mg/dL (7.8-10.44); Carbon Dioxide 20 mmol/L (22-29); Chloride 107 mmol/L (98-107); Globulin 3.3 g/dL (2.4-3.5); Glucose 92 mg/dL (70-105); Lipase 19 U/L (8-78); Potassium 3.7 mmol/L (3.5-5.1); Sodium 137 mmol/L (136-145)
[2025-07-02 12:37] LABS: CAUTI Indications for Culture Dysuria,urgency,freq; Glucose, Urine (Dipstick) Negative (Negative); Leukocyte Negative (Negative); Protein, Urine (Dipstick) Negative (Neg-Trace); RBC/HPF None Seen HPF (0-3); Specific Gravity, Urine 1.010 (1.005-1.030); Urine Culture Reflex No No; WBC/HPF None Seen HPF (0-3)
== END 2025-07-02 12:47 | disposition home or self-care (01) ==
LOC: MADERS 11:13
DX: R10.30 Lower abdominal pain, unspecified (principal); F17.210 Nicotine dependence, cigarettes, uncomplicated
CPT/HCPCS: 36415; 80053; 81001; 83690; 84703; 85025; 87480; 87510; 87660; 99284

== ENCOUNTER 2025-08-26 11:17 | Emergency (ER) | payer SELFPAY | END 2025-08-26 12:00 | disposition home or self-care (01) | LOC: MADERS 11:17 | DX: J06.9 Acute upper respiratory infection, unspecified (principal); H61.22 Impacted cerumen, left ear; M54.9 Dorsalgia, unspecified; G89.29 Other chronic pain; N83.209 Unspecified ovarian cyst, unspecified side; F17.210 Nicotine dependence, cigarettes, uncomplicated | CPT/HCPCS: 87081; 87430; 99283 ==